=== PATIENT | male | born 1960 | race Caucasian/White ===

== ENCOUNTER 2016-11-18 16:08 | Emergency (ER) | payer OTHER ==
[~2016-11-18] VITALS: Ht 175.3 cm; Wt 95.3 kg
--- NOTE | 2016-11-18 16:10 | NUR ---
Patient to ER bed H to gown for evaluation. Side rails up. Report given to Shell SHIRLEY.
--- NOTE | 2016-11-18 16:18 | NUR ---
Patient to ER C/O lower back pain radiating to left leg "all the way to the ankle" Patient states that he had a back injury about 3 weeks ago, used OTC and Hot/Cold home remedies but today the pain is excruciating. AAOx4, unlabored breathing, no signs of acute distress.
[2016-11-18 16:25] VITALS: BP 109/56; PULSE 114; RESP 16; TEMP 97.9; O2SAT 99
--- NOTE | 2016-11-18 16:29 | NUR ---
ER JUAN Frederick at bedside evaluating the patient.
[2016-11-18] MEDS ORDERED: KETOROLAC TROMETHAMINE 60 MG/2 ML VIAL IM ONE (16:45)
--- NOTE | 2016-11-18 17:26 | NUR ---
Patient states that he feels much better.
[2016-11-18 17:44] VITALS: BP 127/68; PULSE 82; RESP 17; TEMP 97.9; O2SAT 99
--- NOTE | 2016-11-18 17:44 | NUR ---
Patient given written and verbal discharge instructions and verbalizes understanding. ER [employer] Yoly discussed with patient the results and treatment provided. Patient in stable condition. ID arm band removed. Rx of motrin given. Patient educated on pain management and to follow up with PMD. Pain Scale 0/10. Opportunity for questions provided and answered.
== END 2016-11-18 17:44 | disposition home or self-care (01) ==
LOC: SED 16:08
DX: M54.16 Radiculopathy, lumbar region (principal); C92.10 Chronic myeloid leukemia, BCR/ABL-positive, not having achieved remission; W19.XXXA Unspecified fall, initial encounter; Y93.89 Activity, other specified; Y99.8 Other external cause status; Y92.89 Other specified places as the place of occurrence of the external cause
CPT/HCPCS: 72131; 96372; 99284; J1885